=== PATIENT | male | born 2000 | race Caucasian/White ===

== ENCOUNTER 2020-01-19 16:56 | Emergency (ER) | payer OTHER ==
[~2020-01-19] VITALS: Ht 177.8 cm; Wt 68.0 kg
== END 2020-01-19 19:39 | disposition home or self-care (01) ==
LOC: ER 16:56
DX: J06.9 Acute upper respiratory infection, unspecified (principal); Z20.828 Contact with and (suspected) exposure to other viral communicable diseases